=== PATIENT | male | born 1965 | race American Indian/Alaskan Native ===

== ENCOUNTER 2020-10-10 08:12 | Outpatient (CLI) | payer BC, OTHER ==
[2020-10-10] MEDS ORDERED: NITROGLYCERIN 0.4 MG TAB SUBL SL ONE (09:00)
[2020-10-10] MEDS ORDERED: METOPROLOL TARTRATE 5 MG/5 ML INJ IV ONE (09:00)
[2020-10-10] MEDS ORDERED: ATROPINE 0.1% (1 MG/10 ML) CARDIAC SYRINGE ONE (09:29)
[2020-10-10 09:30] LABS: Blood Urea Nitrogen 14 mg/dL (9-20)
[2020-10-10 10:43] VITALS: BP 120/69
--- NOTE | 2020-10-10 18:29 | Cat Scan Report ---
The following report is a Radiology over-read of a CT Cardiac / Calcium Scoring study which will be r eported separately by Cardiology. CT CARDIAC / CALCIUM SCORING OVER-READ TECHNIQUE: Limited CT through the heart and lung bases. All CT scans at this location are performed u sing CT dose reduction for [facility] by means of automated exposure control. COMPARISON: None available. FINDINGS: VISUALIZED LUNGS / PLEURA: No significant abnormality. SOFT TISSUES: No significant abnormality. SKELETAL SYSTEM: No significant abnormality. ADDITIONAL FINDINGS: No significant additional abnormality. IMPRESSION: 1. No significant extracardiac abnormality. Signer Name: Roberto Aguilar MD Signed: 10/10/2020 6:24 PM Workstation Name: [id number]
--- NOTE | 2020-10-11 07:25 | CT Calcium Scoring Report ---
Coronary Calcium Score Date of service: 10/11/20 Procedure: High-resolution computed tomographic imaging of the chest was performed on10/10/20 with particular attention paid to the coronary arteries. Images from the examination were analyzed for the presence and extent of coronary artery calcification, using coronary calcium quantification software. The patient tolerated the procedure well and there were no complications. The results of the coronary calcification analysis are provided below. The patient scores are compared with published data related to scores for people of a similar age and the same gender. - Findings Total Agatson Score: 0 Findings: Cardiac CTA Indication: chest pain Informed consent obtained Procedure: The patient was brought to the cardiac ct laboratory at [facility] in stable condition after a 4 hour fast. Heart rate was regulated by beta blockade. Sublingual ngt was administered. After data acquisition and reconstruction, the images were processed and reviewed on the computer workstation. Multiple phases of the cardiac cycle were assessed for image interpretation. Volume rendered images, multiplanar reformated images, and maximum intensity projections images were generated and reviewed A coronary calcium score was performed via the Agatston method. A separate radiology assessment of the non cardiac structures in the field of view will be provided. Superior vena cava in the field of view appears normal Inferior vena cava in the filed of view appears normal Ascending aorta in the field of view appears normal Descending aorta in the field of view appears normal Pulmonary artery in the filed of view appears normal Pulmonary veins enter the left atrium appropriately Left ventricle appears normal Right Ventricle appears normal Left atrium appears normal Left atrial appendage appears normal Right atrium appears normal Interventricular septum appears normal Interatrial septum appears normal Aortic valve appears normal Mitral Valve appears normal Intracardiac mass: none Pericardial effusion: none Coronary Angiography: Dominance: right Origins: normal Left main: normal Left anterior descending coronary artery and diagonal branches: normal Circumflex coronary artery and obtuse marginal branches: normal Right coronary artery: appears normal, but assessment limited by motion artifact the procedure was tolerated well. there were no procedural complications
== END 2020-10-10 10:27 | disposition home or self-care (01) ==
LOC: CT 08:12
PROVIDERS: ATTEND Internal Medicine
DX: R07.9 Chest pain, unspecified (principal); R06.02 Shortness of breath
CPT/HCPCS: 36415; 75574; 82565; 84520; Q9967; J0461